=== PATIENT | male | born 1930 | race Caucasian/White ===

== ENCOUNTER 2020-05-25 02:32 | Observation (INO) ==
[2020-05-25] MEDS ORDERED: *HR* FentaNYL (PF) 100 MCG/2 ML VIAL IVP ONE (02:46)
[2020-05-25 02:53] LABS: Basophils % 0.1 %; Hematocrit 40.8 % (37.5-50.1); Immature Granulocytes % 0.5 % (0-4); Lymphocytes % 11.3 %; Mean Corpuscular HGB Conc 31.9 g/dL (31.6-35.5); Mean Corpuscular Hemoglobin 29.7 pg (28.0-33.3); Mean Corpuscular Volume 93.4 fL (83.0-100.0); Monocytes % 3.4 %; Platelet Count 174 K/mcL (140-400); Red Blood Count 4.37 M/mcL (4.19-5.50); Red Cell Distribution Width 12.9 % (11.5-14.5); Segmented Neutrophils % 84.7 %; White Blood Count 8.8 K/mcL (4.3-11.1)
[2020-05-25 02:54] LABS: Monocytes # 0.3 K/mcL (0.0-1.3); Neutrophils # 7.4 K/mcL (1.6-8.9)
[2020-05-25 02:59] LABS: INR 1.1
[2020-05-25 03:02] LABS: Activated Partial Thrombo Time 26.8 Seconds (26.0-36.0)
[2020-05-25 03:17] LABS: Calcium 9.4 mg/dL (8.6-10.3); Potassium 4.6 mEq/L (3.5-5.1)
[2020-05-25 03:33] LABS: Troponin I 0.04 ng/mL (< 0.04)
[2020-05-25] MEDS ORDERED: *HR* OxyCODONE/APAP 10/325 TABLET PO PRN (04:24)
[2020-05-25] MEDS ORDERED: Nitroglycerin 0.4 MG TAB.SUBL SL PRN (04:24)
[2020-05-25] MEDS ORDERED: Naloxone 0.4 MG/ML INJ IVP PRN (04:25)
[2020-05-25] MEDS ORDERED: Furosemide 20 MG TABLET PO ONE (07:16)
[2020-05-25] MEDS: lisinopriL 20 MG TABLET PO SCH (08:00)
[2020-05-25] MEDS: Isosorbide MONOnitrate (24 HR) 30 MG TAB.ER.24H PO SCH (08:00)
[2020-05-25] MEDS ORDERED: lisinopriL 20 MG TABLET PO SCH (09:00)
[2020-05-25] MEDS ORDERED: Perflutren Lipid Microsphere 1.3 ML in 0.9 % Sodium Chloride 8.7 ML IVP PRN (13:30)
[2020-05-25] MEDS ORDERED: *HR* Heparin 5,000 UNIT/ML VIAL IVP PRN ×2 (14:28)
[2020-05-25] MEDS ORDERED: *HR* Heparin 5,000 UNIT/ML VIAL IVP ONE (14:28)
[2020-05-25] MEDS: Heparin 25,000UNIT/250ML 1/2NS 25,000 UNIT/250 ML IV.SOLN IVC SCH (16:02)
[2020-05-25] MEDS ORDERED: *HR* Heparin 5,000 UNIT/ML VIAL SQ SCH (18:00)
[2020-05-25 18:21] LABS: INR 1.1; Prothrombin Time 13.2 Seconds (9.4-12.1)
[2020-05-25 18:24] LABS: Heparin anti-factor XA UFH 1.07 IU/mL (0.30-0.70)
[2020-05-26 01:16] LABS: Basophils % 0.2 %; Eosinophils % 0.3 %; Hematocrit 34.5 % (37.5-50.1); Immature Granulocytes % 0.5 % (0-4); Lymphocytes # 1.6 K/mcL (0.6-4.6); Lymphocytes % 15.1 %; Mean Corpuscular HGB Conc 31.9 g/dL (31.6-35.5); Mean Corpuscular Hemoglobin 29.4 pg (28.0-33.3); Mean Corpuscular Volume 92.2 fL (83.0-100.0); Mean Platelet Volume 11.4 fL (9.4-12.4); Monocytes # 0.8 K/mcL (0.0-1.3); Monocytes % 7.9 %; Neutrophils # 7.9 K/mcL (1.6-8.9); Platelet Count 154 K/mcL (140-400); Red Blood Count 3.74 M/mcL (4.19-5.50); Red Cell Distribution Width 13.2 % (11.5-14.5); White Blood Count 10.4 K/mcL (4.3-11.1)
[2020-05-26 01:37] LABS: Calcium 8.7 mg/dL (8.6-10.3); Potassium 3.9 mEq/L (3.5-5.1)
[2020-05-26] MEDS ORDERED: *HR* Labetalol 20 MG/4 ML SYRINGE IVP ONE ×2 (03:58→04:15)
[2020-05-26 03:59] LABS: VBG Ionized Calcium 1.15 mmol/L (1.15-1.35)
[2020-05-26 04:17] LABS: Calcium 8.9 mg/dL (8.6-10.3); Potassium 3.9 mEq/L (3.5-5.1)
[2020-05-26 07:49] LABS: Troponin I 10.45 ng/mL (< 0.04)
[2020-05-26] MEDS: lisinopriL 20 MG TABLET PO SCH (08:12)
[2020-05-26] MEDS: Aspirin Enteric Coated 81 MG Tablet PO SCH (08:12)
[2020-05-26] MEDS: Isosorbide MONOnitrate (24 HR) 30 MG TAB.ER.24H PO SCH (08:12)
[2020-05-26] MEDS ORDERED: Furosemide 20 MG TABLET PO PRN (10:28)
[2020-05-26] MEDS: Heparin 25,000UNIT/250ML 1/2NS 25,000 UNIT/250 ML IV.SOLN IVC SCH (19:50)
[2020-05-27 07:11] VITALS: BP 147/76
[2020-05-27 09:45] LABS: Basophils % 0.3 %; Eosinophils # 0.1 K/mcL (0.0-0.6); Eosinophils % 1.7 %; Hematocrit 39.7 % (37.5-50.1); Hemoglobin 12.4 g/dL (12.9-16.9); Immature Granulocytes % 0.6 % (0-4); Lymphocytes # 0.9 K/mcL (0.6-4.6); Lymphocytes % 14.7 %; Mean Corpuscular HGB Conc 31.2 g/dL (31.6-35.5); Mean Corpuscular Hemoglobin 29.5 pg (28.0-33.3); Mean Corpuscular Volume 94.3 fL (83.0-100.0); Mean Platelet Volume 10.9 fL (9.4-12.4); Monocytes # 0.7 K/mcL (0.0-1.3); Monocytes % 10.7 %; Neutrophils # 4.6 K/mcL (1.6-8.9); Platelet Count 166 K/mcL (140-400); Red Blood Count 4.21 M/mcL (4.19-5.50); Red Cell Distribution Width 13.2 % (11.5-14.5); White Blood Count 6.3 K/mcL (4.3-11.1)
[2020-05-27 10:01] LABS: BUN/Creatinine Ratio 26 (6-26); Blood Urea Nitrogen 33 mg/dL (8-23); Carbon Dioxide 25 mEq/L (23-29); Chloride 105 mEq/L (98-107); Glucose 112 mg/dL (70-105); Osmolality,Calculated 296 (280-300); Potassium 3.6 mEq/L (3.5-5.1); Sodium 139 mEq/L (136-145); eGFR For African Americans > 60 (> 60); eGFR For Non-African Americans 54 (> 60)
[2020-05-27] MEDS: lisinopriL 20 MG TABLET PO SCH (12:06)
[2020-05-27] MEDS: Aspirin Enteric Coated 81 MG Tablet PO SCH (12:06)
[2020-05-27] MEDS: Isosorbide MONOnitrate (24 HR) 30 MG TAB.ER.24H PO SCH (12:06)
[2020-05-27] MEDS ORDERED: *HR* Heparin 5,000 UNIT/ML VIAL SQ SCH (18:00)
[2020-05-28] MEDS ORDERED: Metoprolol XL (24 HR) Succ 25 MG TAB.ER.24H PO SCH (09:00)
== END 2020-05-27 13:27 | disposition home or self-care (01) ==
LOC: 3ANU 02:32 → EMEROOARM 02:32 → SUATTDRO 04:25 → 3ANU 05:50
PROVIDERS: ADMIT Internal Medicine; ATTEND Internal Medicine